=== PATIENT | female | born 1960 ===

== ENCOUNTER 2018-05-24 09:12 | Emergency (ER) | payer OTHER ==
[2018-05-24 09:13] VITALS: BMI 26.6
[2018-05-24] MEDS ORDERED: Albuterol-Ipratrop 3 mg / 0.5 (3 ml) UD ONE ×3 (09:19→10:59)
[2018-05-24] MEDS ORDERED: Albuterol 0.083% Inhal Sol (2.5 mg/3 mL) UD IH STA ×2 (09:35→10:49)
[2018-05-24] MEDS ORDERED: Magnesium Sulfate 1 gm in D5W 1 GM/100 ML BAG IV STA (09:35)
[2018-05-24] MEDS ORDERED: Magnesium Sulfate 1 gm in D5W 1 GM/100 ML BAG IV ONE (09:35)
[2018-05-24] MEDS ORDERED: Albuterol-Ipratrop 3 mg / 0.5 (3 ml) UD INH STA ×2 (09:36→10:49)
[2018-05-24 09:43] LABS: BASO # 0.1 K/uL (0.0-0.2); BASO % 0.5 % (0.0-2.0); EOS # 0.1 K/uL (0.0-0.7); EOS % 0.3 % (0.0-4.0); HEMOGLOBIN 13.7 g/dL (11.0-16.0); LYMPH # 3.1 K/uL (1.0-4.3); LYMPH % 16.9 % (20.0-40.0); MEAN CELL VOLUME 87.3 fL (81.0-99.0); MEAN CORPUSCULAR HGB CONC 33.2 g/dL (33.0-37.0); MEAN PLATELET VOLUME 9.2 fL (7.2-11.7); MONO # 1.5 K/uL (0.0-0.8); MONO % 8.2 % (0.0-10.0); NEUT # 13.8 K/uL (1.8-7.0); NEUT % 74.1 % (50.0-75.0); RBC 4.71 Mil/uL (3.80-5.20); RED CELL DISTRIBUTION WIDTH 14.6 % (11.5-14.5); WHITE BLOOD COUNT 18.6 K/uL (4.8-10.8)
[2018-05-24] MEDS ORDERED: Magnesium Sulfate 1 gm in D5W 2 GM/200 ML BAG IVPB ONE (09:51)
[2018-05-24 09:55] LABS: ALB/GLOB RATIO 1.2 (1.0-2.1); ALBUMIN 4.2 g/dL (3.5-5.0); ALT/SGPT 29 U/L (9-52); AST/SGOT 17 U/L (14-36); BLOOD UREA NITROGEN 9 mg/dL (7-17); CALCIUM 9.6 mg/dl (8.6-10.4); GFR NON-AFRICAN AMERICAN > 60
--- NOTE | 2018-05-24 10:36 | RAD ---
Date of service: 05/24/2018 PROCEDURE: CHEST RADIOGRAPH, 1 VIEW HISTORY: SOB COMPARISON: None available. FINDINGS: LUNGS: Clear. PLEURA: No pneumothorax or pleural fluid seen. CARDIOVASCULAR: Normal. OSSEOUS STRUCTURES: No significant abnormalities. VISUALIZED UPPER ABDOMEN: Normal. OTHER FINDINGS: None. IMPRESSION: No active disease.
[2018-05-24 10:47] VITALS: PULSE 102
--- NOTE | 2018-05-24 10:50 | C.PDOC ---
History Of Present Illness 58 year old female presents to the emergency department with complaints of shortness of breath and wheezing for the last two to three days. Patient states that she was seen by her PMD two days ago, was started on Prednisone 20mg with no relief. Patient reports experiencing a nonproductive cough, but denies fever , chest pain, abdominal pain, nausea/vomiting/diarrhea, or leg edema. Time Seen by Provider: 05/24/18 09:21 Chief Complaint (Nursing): Shortness Of Breath History Per: Patient History/Exam Limitations: no limitations Onset/Duration Of Symptoms: Days (2-3) Current Symptoms Are (Timing): Still Present Severity: Moderate Associated Symptoms: Other (shortness of breath and wheezing, non-productive cough, ). denies: Fever, Chest Pain, Ankle/Leg Swelling Past Medical History Reviewed: Historical Data, Nursing Documentation, Vital Signs Vital Signs: Last Vital Signs Temp 98.2 F 05/24/18 12:40 Pulse 102 H 05/24/18 12:40 Resp 16 05/24/18 12:40 BP 155/104 H 05/24/18 12:40 Pulse Ox 95 05/24/18 12:40 - Medical History PMH: Asthma, Migraine Surgical History: No Surg Hx Family History: States: No Known Family Hx - Social History Hx Alcohol Use: Yes Hx Substance Use: No - Immunization History Hx Tetanus Toxoid Vaccination: No Hx Influenza Vaccination: No Hx Pneumococcal Vaccination: No Review Of Systems Constitutional: Negative for: Fever Cardiovascular: Negative for: Chest Pain, Palpitations, Edema (leg) Respiratory: Positive for: Shortness of Breath, Wheezing. Negative for: Cough Gastrointestinal: Negative for: Nausea, Vomiting, Abdominal Pain, Diarrhea Genitourinary: Negative for: Dysuria, Hematuria Skin: Negative for: Rash Physical Exam - Physical Exam Appears: Non-toxic, In Acute Distress (in mild respiratory distress) Skin: Normal Color, Warm, Dry, No Rash Head: Normacephalic Oral Mucosa: Moist Neck: Supple Cardiovascular: Rhythm Regular, Other (tachycardic) Respiratory: Accessory Muscle Use (mild), No Rales, No Rhonchi, Wheezing ( diffuse expiratory wheezing B/L ), Other (speaking 1-2 words at a time) Gastrointestinal/Abdominal: Normal Exam, Bowel Sounds, Soft, No Tenderness Extremity: Normal ROM, No Pedal Edema, No Calf Tenderness, No Swelling Pulses: Left Dorsalis Pedis: Normal, Right Dorsalis Pedis: Normal Neurological/Psych: Oriented x3 ED Course And Treatment - Laboratory Results Result Diagrams: 05/24/18 09:39 05/24/18 09:39 ECG: Interpreted By Me, Viewed By Me ECG Interpretation: Abnormal Interpretation Of ECG: Sinus Tachycardia at 111bpm, no delta waves, normal axis , no acute st-t wave changes, abnormal EKG O2 Sat by Pulse Oximetry: 91 (RA) Pulse Ox Interpretation: Abnormal - Radiology CXR: Interpreted by Me, Viewed By Me CXR Interpretation: Yes: No Acute Disease. No: Infiltrates Progress Note: Blood work, CXR, EKG ordered and reviewed. Patient given IV solumedrol, IV magnesium 2g, albuterol treatments, Terbutaline SC. Reevaluation Time: 12:40 Reassessment Condition: Improved (Patient reassessed, is resting comfortably and states she feels better. On exam, patient has improved air entry B/L but still has some expiratory wheezing B/L. Patient offered admission, but she states she prefers to be discharged home. Explained to patient that she will need to sign out against my medical advice, and that by doing so, she is risking worsening of her current condition and possible even . Patient understands the risks and has signed out AMA. Rxs for prednisone and albuterol given. Patient instructed to follow up with PMD in 1-2 days, and she understands that she should return to ED immediately if her symptoms worsen.) Critical Care Time - Critical Care Note Total Time (in mins): 40 Documented critical care: time excludes all time spent performing seperately billable procedures. Disposition Counseled Patient/Family Regarding: Studies Performed, Diagnosis, Need For Followup, Rx Given - Disposition Referrals: Nelly Sahu APN [Advanced Practice Nurse] - Disposition: AGAINST MEDICAL ADVICE Disposition Time: 12:40 Condition: STABLE Additional Instructions: FOLLOW UP WITH YOUR DOCTOR IN 1-2 DAYS USE MEDICATIONS DIRECTED RETURN TO ER IMMEDIATELY IF SYMPTOMS WORSEN Prescriptions: Albuterol 0.5% [Albuterol 0.5% Inhal Celeste (2.5 mg/0.5 ml) UD] 2.5 mg IH Q6 PRN # 1 bottle PRN Reason: Wheezing Albuterol HFA [Ventolin HFA 90 mcg/actuation (8 g)] 0.09 mg IH Q4 PRN #1 puff PRN Reason: Wheezing predniSONE [predniSONE Tab] 60 mg PO DAILY #12 tab Instructions: Asthma, Adult (DC) Forms: [facility] (Chinese), (AMA) Informed Refusal Print Language: [place]UWAITI - Clinical Impression Clinical Impression: Asthma exacerbation, Left against medical advice - Scribe Statement The provider has reviewed the documentation as recorded by the Scribe (Gurdeep Espinoza) Provider Attestation: All medical record entries made by the Scribe were at my direction and personally dictated by me. I have reviewed the chart and agree that the record accurately reflects my personal performance of the history, physical exam, medical decision making, and the department course for this patient. I have also personally directed, reviewed, and agree with the discharge instructions and disposition.
[2018-05-24 12:42] VITALS: BP 155/104; RESP 16; TEMP 98.2
--- NOTE | 2018-05-26 14:53 | CARD ---
APPROVED REPORT Date of service: 05/24/2018 EKG Measurement Heart [id number] <Conclusion> Sinus tachycardia with short MA Otherwise normal ECG
[2018-05-28 10:03] VITALS: O2SAT 91
== END 2018-05-24 12:45 | disposition left against medical advice (07) ==
LOC: C.ER 09:12
DX: J45.901 Unspecified asthma with (acute) exacerbation (principal)
CPT/HCPCS: 71045; 80053; 85025; 93005; 94150; 94640; 96365; 96366; 96372; 96375; 99284; J2930; J3105; J3475